=== PATIENT | female | born 1995 | race Asian ===

== ENCOUNTER 2023-05-28 20:00 | Inpatient (IN) ==
[2023-05-28] MEDS: Methylene Blue 0.5 % 50 MG/10 ML AMP IV ONE ×2 (20:24→21:01)
[2023-05-28] MEDS ORDERED: Succinylcholine 200 mg VIAL 20 mg/ml 10 ml VIAL (200 mg) IV ONE (20:26)
[2023-05-28] MEDS: Lactated Ringers 1000 ml BAG 1,000 ML IV ONE ×2 (20:28→20:48)
[2023-05-28 20:35] LABS: PCO2 Arterial 26 mmHg (35-45); PO2 Arterial 86 mmHg (80-100)
[2023-05-28 20:37] LABS: Hematocrit 37.3 % (35-45); Mean Corpuscular Hemoglobin 29.8 pg (27-33); Mean Corpuscular Hgb Conc 32.2 g/dL (31-36); Mean Corpuscular Volume 92.4 fL (80-97); Mean Platelet Volume 7.5 fL (7.5-11.2); Platelet Count 332 10^3/uL (150-450); Red Blood Count 4.04 10^6/uL (3.63-4.92); White Blood Count 10.8 10^3/uL (3.8-11.8)
[2023-05-28] MEDS ORDERED: HYDROmorphone 1 MG/1 ML SYRINGE IV ONE ×2 (20:38→20:39)
[2023-05-28 20:55] LABS: ALT 7 U/L (7-52); AST 15 U/L (13-39); Albumin 3.7 g/dL (3.2-5.2); Albumin/Globulin Ratio 1.4 (1-3); Alkaline Phosphatase 44 U/L (35-149); Blood Urea Nitrogen 9 mg/dL (6-24); Chloride 111 mmol/L (101-111); Creatinine, Serum 0.92 mg/dL (0.51-0.95); Globulin 2.6 g/dL (2-4); Glucose 304 mg/dL (70-100); Potassium 4.6 mmol/L (3.5-5.0); Sodium 143 mmol/L (135-145); Total Protein 6.3 g/dL (6.4-8.9)
[2023-05-28 20:57] LABS: Urine Appearance Cloudy; Urine Bilirubin Negative (Negative); Urine Blood 3+ (Negative); Urine Color Yellow; Urine Glucose Negative (Negative); Urine Ketones Negative (Negative); Urine Nitrite Positive (Negative); Urine Protein Negative (Negative); Urine Specific Gravity 1.017 (1.002-1.030); Urine Urobilinogen Negative (Negative)
[2023-05-28] MEDS ORDERED: Methylene Blue 0.5 % 50 MG/10 ML AMP IV ONE (21:00)
[2023-05-28] MEDS: Propofol 10 mg/ml 100 ML BTL 1,000 MG/100 ML BTL IV SCH (21:00)
[2023-05-28 21:01] LABS: HCG Pregnancy 0.66 mIU/mL
[2023-05-28] MEDS ORDERED: Propofol 10 mg/ml 100 ML BTL 1,000 MG/100 ML BTL ONE (21:03)
[2023-05-28 21:10] LABS: Anion Gap 25 mmol/L (2-16); CO2 Carbon Dioxide 7 mmol/L (22-32)
[2023-05-28 21:10] LABS: Urine Bacteria Absent (Absent); Urine Red Blood Cell 3+(>10/hpf) (Absent); Urine Squamous Epithelial Cell Present (Absent); Urine White Blood Cell Trace(0-5/hpf) (Absent)
[2023-05-28 21:14] LABS: Urine Benzodiazepine Screen None Detected (None Detect); Urine Cannabinoids Screen None Detected (None Detect); Urine Opiates Screen None Detected (None Detect)
[2023-05-28] MEDS ORDERED: LORazepam 2 mg VIAL 1 ml ONE (21:17)
[2023-05-28 21:29] LABS: Magnesium 2.6 mg/dL (1.9-2.7); Phosphorus 5.9 mg/dL (2.5-5.0)
[2023-05-28] MEDS ORDERED: LORazepam 2 mg VIAL 1 ml IV PUSH ONE (21:35)
[2023-05-28] MEDS ORDERED: Lorazepam PYXIS KEY PRN ×2 (21:35→23:27)
[2023-05-28 21:42] LABS: ABS Basophils 0.1 10^3/uL (0.0-0.1); ABS Eosinophils 0.2 10^3/uL (0.0-0.5); ABS Lymphocytes 6.2 10^3/uL (1.0-4.8); ABS Monocytes 0.7 10^3/uL (0.0-0.9); ABS Neutrophils 3.6 10^3/uL (1.5-7.6); Lymphocyte % 57.2 %
[2023-05-28] MEDS ORDERED: Pantoprazole VIAL 40 MG VIAL IV SCH (22:00)
[2023-05-28] MEDS: NORMOSOL-R pH 7.4 1000 mL BAG 1,000 ML IV SCH (22:11)
[2023-05-28] MEDS: Chlorhexidine MOUTHWASH 0.12% 15 ML UDC SWISH SPIT SCH (22:21)
[2023-05-28 22:33] LABS: Acetaminophen < 15 mcg/mL; Alcohol, S < 13 mg/dL (<13); Salicylate < 2.50 mg/dL (<30)
[2023-05-28 22:40] LABS: Activated Partial Thrombo Time 26.6 seconds (26.0-38.0); INR 1.13 (0.88-1.18)
[2023-05-28 22:47] LABS: TSH Ultra Thyroid Stim Horm 2.48 mcIU/mL (0.34-5.60)
[2023-05-28] MEDS: fentaNYL 100 mcg/2 ml 50 MCG/ML VIAL IV SLOW PU ONE (23:16)
[2023-05-28] MEDS ORDERED: LORazepam 2 mg VIAL 1 ml IV PUSH PRN (23:27)
[2023-05-29 00:08] LABS: PCO2 Arterial 27 mmHg (35-45); PO2 Arterial 396 mmHg (80-100)
[2023-05-29] MEDS ORDERED: Ondansetron 4 mg VIAL 2 MG/ML 2 ml VIAL ONE ×2 (00:10→09:18)
[2023-05-29] MEDS ORDERED: Piperacillin/Tazobac ADVAN 3.375 GM in NS 0.9% 100 ml BAG 100 ML IV ONE (00:14)
[2023-05-29] MEDS ORDERED: Zosyn per Pharmacy NOTE FOLLOW UP SCH (01:00)
[2023-05-29] MEDS: fentaNYL 100 mcg/2 ml 50 MCG/ML VIAL IV SLOW PU ONE (03:01)
[2023-05-29] MEDS: Propofol 10 mg/ml 100 ML BTL 1,000 MG/100 ML BTL IV SCH (03:03)
[2023-05-29 03:30] LABS: ABS Lymphocytes 0.5 10^3/uL (1.0-4.8); ABS Monocytes 0.5 10^3/uL (0.0-0.9); ABS Neutrophils 8.9 10^3/uL (1.5-7.6); ABS Nucleated RBC 0.01 10^3/ul; Eosinophil % 0.1 %; Hematocrit 25.2 % (35-45); Hemoglobin 8.7 g/dL (11.5-14.3); Lymphocyte % 5.3 %; Mean Corpuscular Hemoglobin 29.2 pg (27-33); Mean Corpuscular Hgb Conc 34.5 g/dL (31-36); Mean Corpuscular Volume 84.5 fL (80-97); Mean Platelet Volume 7.1 fL (7.5-11.2); Nucleated Red Blood Cells % 0.1 /100 WBC (0.0-0.4); Platelet Count 198 10^3/uL (150-450); Red Blood Count 2.99 10^6/uL (3.63-4.92); Red Cell Distribution Width 13.4 % (12-17)
[2023-05-29 04:04] LABS: ABS Lymphocytes 0.8 10^3/uL (1.0-4.8); ABS Monocytes 0.7 10^3/uL (0.0-0.9); ABS Neutrophils 11.4 10^3/uL (1.5-7.6); Eosinophil % 0.1 %; Hematocrit 30.7 % (35-45); Hemoglobin 10.8 g/dL (11.5-14.3); Mean Corpuscular Hemoglobin 29.6 pg (27-33); Mean Corpuscular Hgb Conc 35.1 g/dL (31-36); Mean Corpuscular Volume 84.3 fL (80-97); Platelet Count 223 10^3/uL (150-450); Red Blood Count 3.63 10^6/uL (3.63-4.92); Red Cell Distribution Width 13.6 % (12-17); White Blood Count 12.9 10^3/uL (3.8-11.8)
[2023-05-29 04:23] LABS: Albumin 3.6 g/dL (3.2-5.2); Albumin/Globulin Ratio 1.7 (1-3); Calcium 7.9 mg/dL (8.6-10.3); Creatinine, Serum 0.71 mg/dL (0.51-0.95); Globulin 2.1 g/dL (2-4); Phosphorus 3.1 mg/dL (2.5-5.0); Potassium 3.3 mmol/L (3.5-5.0); Total Bilirubin 0.8 mg/dL (0.2-1.0); Total Protein 5.7 g/dL (6.4-8.9); eGFR CKD-EPI 118.7 (>60)
[2023-05-29] MEDS: Chlorhexidine MOUTHWASH 0.12% 15 ML UDC SWISH SPIT SCH ×2 (04:30→05:57)
[2023-05-29] MEDS: Enoxaparin 40 MG/0.4 ML SYR SUBCUT SCH ×2 (05:00→22:49)
[2023-05-29] MEDS: KCL 20 MEQ/100 ML IVPREMIX 20 MEQ/100 ML BAG IV SCH ×3 (05:00→09:31)
[2023-05-29 05:12] LABS: High Sensitivity Troponin 1 Hr 565 pg/mL (<15)
[2023-05-29] MEDS: ZOSYN 3.375 GM Q8H per EXTENDED INFUSION IV SCH ×2 (06:20→12:09)
[2023-05-29] MEDS: NORMOSOL-R pH 7.4 1000 mL BAG 1,000 ML IV SCH ×3 (06:21→23:07)
[2023-05-29] MEDS ORDERED: Ondansetron 4 mg VIAL 2 MG/ML 2 ml VIAL IV PRN (09:20)
[2023-05-29 17:45] LABS: ABS Lymphocytes 1.2 10^3/uL (1.0-4.8); ABS Monocytes 0.7 10^3/uL (0.0-0.9); ABS Neutrophils 6.9 10^3/uL (1.5-7.6); Eosinophil % 0.5 %; Hematocrit 29.6 % (35-45); Hemoglobin 10.3 g/dL (11.5-14.3); Lymphocyte % 13.4 %; Mean Corpuscular Hgb Conc 34.7 g/dL (31-36); Mean Corpuscular Volume 83.5 fL (80-97); Mean Platelet Volume 7.4 fL (7.5-11.2); Platelet Count 208 10^3/uL (150-450); Red Blood Count 3.55 10^6/uL (3.63-4.92); Red Cell Distribution Width 13.8 % (12-17); White Blood Count 8.8 10^3/uL (3.8-11.8)
[2023-05-29 18:09] LABS: ALT 69 U/L (7-52); Albumin 3.6 g/dL (3.2-5.2); Albumin/Globulin Ratio 1.5 (1-3); Alkaline Phosphatase 41 U/L (35-149); Blood Urea Nitrogen 5 mg/dL (6-24); CO2 Carbon Dioxide 21 mmol/L (22-32); Calcium 7.9 mg/dL (8.6-10.3); Chloride 105 mmol/L (101-111); Creatinine, Serum 0.59 mg/dL (0.51-0.95); Globulin 2.4 g/dL (2-4); Glucose 88 mg/dL (70-100); Sodium 134 mmol/L (135-145); eGFR CKD-EPI 125.8 (>60)
[2023-05-29 18:10] LABS: Anion Gap 8 mmol/L (2-16)
[2023-05-29 18:49] LABS: Magnesium 1.9 mg/dL (1.9-2.7); Phosphorus 2.5 mg/dL (2.5-5.0); Potassium Redraw 3.4 mmol/L (3.5-5.0)
[2023-05-29] MEDS ORDERED: KCL 20 MEQ/100 ML IVPREMIX 20 MEQ/100 ML BAG IV ONE (18:56)
[2023-05-29] MEDS ORDERED: Succinylcholine 200 mg VIAL 20 mg/ml 10 ml VIAL (200 mg) ONE (20:08)
[2023-05-30] MEDS ORDERED: Ondansetron 4 mg VIAL 2 MG/ML 2 ml VIAL IV PRN (03:29)
[2023-05-30] MEDS ORDERED: Acetaminophen IV 1 GM/100ML 1,000 MG/100 ML BAG IV PRN (03:29)
[2023-05-30 05:38] LABS: ABS Basophils 0.1 10^3/uL (0.0-0.1); ABS Eosinophils 0.1 10^3/uL (0.0-0.5); ABS Lymphocytes 1.1 10^3/uL (1.0-4.8); ABS Monocytes 0.6 10^3/uL (0.0-0.9); ABS Neutrophils 6.4 10^3/uL (1.5-7.6); Eosinophil % 0.8 %; Hematocrit 31.7 % (35-45); Lymphocyte % 12.9 %; Mean Corpuscular Hemoglobin 29.4 pg (27-33); Mean Corpuscular Hgb Conc 34.6 g/dL (31-36); Mean Corpuscular Volume 84.9 fL (80-97); Mean Platelet Volume 7.3 fL (7.5-11.2); Platelet Count 187 10^3/uL (150-450); Red Blood Count 3.73 10^6/uL (3.63-4.92); Red Cell Distribution Width 13.8 % (12-17); White Blood Count 8.2 10^3/uL (3.8-11.8)
[2023-05-30 05:54] LABS: Albumin 3.8 g/dL (3.2-5.2); Albumin/Globulin Ratio 1.5 (1-3); Calcium 8.6 mg/dL (8.6-10.3); Creatinine, Serum 0.57 mg/dL (0.51-0.95); Globulin 2.5 g/dL (2-4); Magnesium 1.8 mg/dL (1.9-2.7); Phosphorus 2.5 mg/dL (2.5-5.0); Potassium 3.6 mmol/L (3.5-5.0); Total Bilirubin 0.7 mg/dL (0.2-1.0); Total Protein 6.3 g/dL (6.4-8.9); eGFR CKD-EPI 126.9 (>60)
[2023-05-30] MEDS ORDERED: Magnesium Sulfate IV 1GM/100ML 1 GM/100 ML BAG IV ONE (06:16)
[2023-05-30] MEDS ORDERED: Gadoteridol (CONTRAST) 279.3 MG/ML 10 ML IV ONE (12:32)
[2023-05-30] MEDS: Enoxaparin 40 MG/0.4 ML SYR SUBCUT SCH (20:52)
[2023-05-31 07:44] LABS: ABS Lymphocytes 1.1 10^3/uL (1.0-4.8); ABS Monocytes 0.7 10^3/uL (0.0-0.9); ABS Neutrophils 7.4 10^3/uL (1.5-7.6); Eosinophil % 0.2 %; Hematocrit 32.4 % (35-45); Hemoglobin 11.2 g/dL (11.5-14.3); Lymphocyte % 11.7 %; Mean Corpuscular Hemoglobin 29.4 pg (27-33); Mean Corpuscular Hgb Conc 34.5 g/dL (31-36); Mean Corpuscular Volume 85.2 fL (80-97); Mean Platelet Volume 7.3 fL (7.5-11.2); Platelet Count 211 10^3/uL (150-450); Red Blood Count 3.81 10^6/uL (3.63-4.92); Red Cell Distribution Width 13.7 % (12-17); White Blood Count 9.3 10^3/uL (3.8-11.8)
[2023-05-31 07:54] LABS: Albumin 3.9 g/dL (3.2-5.2); Albumin/Globulin Ratio 1.4 (1-3); Calcium 8.8 mg/dL (8.6-10.3); Creatinine, Serum 0.55 mg/dL (0.51-0.95); Globulin 2.8 g/dL (2-4); Magnesium 1.7 mg/dL (1.9-2.7); Phosphorus 3.6 mg/dL (2.5-5.0); Potassium 3.5 mmol/L (3.5-5.0); Total Bilirubin 0.8 mg/dL (0.2-1.0); Total Protein 6.7 g/dL (6.4-8.9)
[2023-05-31 16:56] VITALS: BP 121/75
== END 2023-05-31 19:02 | disposition home or self-care (01) | DRG 133 ==
LOC: ED 20:00 → ICU 21:02
PROVIDERS: ADMIT Internal Medicine Critical Care Medicine; ATTEND Internal Medicine Critical Care Medicine